=== PATIENT | male | born 1945 | race Hispanic/Latino ===

== ENCOUNTER → 2018-02-12 | Outpatient (CLI) | payer OTHER ==
[~2018-02-12] MED LIST: AEC81 PO; ATOR40TA69 PO; CITA40TA6 PO; ESOM40CA54 PO; HYDR12.530 PO; INSU100V12 SQ; IPRA4AER IH; LISI40TA4 PO; METF-446 PO; METO-391 PO; TAMS0.4C32 PO; TRAM50TA4 PO
== END | disposition home or self-care (01) ==
LOC: RAH 08:41
PROVIDERS: ATTEND Family Medicine
DX: N20.0 Calculus of kidney (principal); K76.89 Other specified diseases of liver
CPT/HCPCS: 76700

== ENCOUNTER → 2018-06-02 | Outpatient (CLI) | payer OTHER ==
[~2018-06-02] MED LIST changes: +REGADENOSON 0.4 MG/5 ML PF SYG IVP SCH
== END | disposition home or self-care (01) ==
LOC: SHCH 08:14
PROVIDERS: ATTEND Internal Medicine Cardiovascular Disease
DX: I20.9 Angina pectoris, unspecified (principal); R06.09 Other forms of dyspnea
CPT/HCPCS: 78452; 93017; 96374; A9500 ×2; J2785

== ENCOUNTER → 2018-07-01 | Outpatient (CLI) | payer OTHER ==
[~2018-07-01] MED LIST changes: -REGADENOSON 0.4 MG/5 ML PF SYG IVP SCH
== END | disposition home or self-care (01) ==
LOC: SHCH 12:52
PROVIDERS: ATTEND Internal Medicine Cardiovascular Disease
DX: I51.7 Cardiomegaly (principal); I35.1 Nonrheumatic aortic (valve) insufficiency
CPT/HCPCS: 93306

== ENCOUNTER → 2018-08-19 | Outpatient (CLI) | payer OTHER | END | disposition home or self-care (01) | LOC: SHCH 13:18 | PROVIDERS: ATTEND Internal Medicine Cardiovascular Disease | DX: I87.2 Venous insufficiency (chronic) (peripheral) (principal) | CPT/HCPCS: 93970 ==

== ENCOUNTER 2019-05-31 14:02 | Observation (INO) | payer OTHER ==
[~2019-05-31] VITALS: Ht 180.3 cm; Wt 99.6 kg
[2019-05-31] MEDS ORDERED: NITROGLYCERIN 1GM/1 INCH PACKET TD ONE ×2 (14:18→18:22)
[2019-05-31 14:24] LABS: BASOPHILS % (AUTO) 0.3 % (0.0-5.0); EOSINOPHILS % (AUTO) 1.5 % (0.0-8.0); HEMATOCRIT 42.3 % (42-54); LYMPHOCYTES % (AUTO) 6.5 % (21.0-51.0); MEAN CORPUSCULAR HGB CONC 33.8 g/dL (32.0-36.0); MEAN CORPUSCULAR VOLUME 85.8 fL (79-99); MONOCYTES % (AUTO) 8.7 % (3.0-13.0); NEUTROPHILS % (AUTO) 82.9 % (40.0-77.0); PLATELET COUNT (AUTO) 188 K/uL (130-400); RED BLOOD CELL COUNT(AUTO) 4.93 MIL/uL (4.50-6.20); RED CELL DISTRIBUTION WIDTH 13.4 % (11.0-15.5); WHITE BLOOD COUNT (AUTO) 7.5 K/uL (4.8-10.8)
[2019-05-31] MEDS ORDERED: IPRATROPIUM/ALBUTEROL SULFATE 3 ML SOLUTION IH ONE (14:39)
[2019-05-31 14:45] LABS: CREATININE 1.2 mg/dL (0.5-1.5); POTASSIUM 3.4 mmol/L (3.5-5.1)
[2019-05-31 14:47] LABS: B-TYPE NATRIURETIC PEPTIDE 86 pg/mL (0-100)
[2019-05-31 14:51] LABS: ALBUMIN 3.5 g/dL (3.5-5.0); BILIRUBIN,TOTAL 0.5 mg/dL (0.2-1.0); TOTAL PROTEIN, SERUM 7.4 g/dL (6.0-8.3)
[2019-05-31] MEDS ORDERED: CEFTRIAXONE SODIUM 1 GM ONE (15:24)
[2019-05-31] MEDS ORDERED: AZITHROMYCIN 500MG+NS 250ML 250 ML IV ONE (15:37)
[2019-05-31 15:56] LABS: APPEARANCE,URINE Clear (CLEAR); BILIRUBIN,URINE Negative (NEGATIVE); COLOR,URINE Yellow (YELLOW); GLUCOSE, URINE (UA) Negative (NEGATIVE); KETONES,URINE Negative (NEGATIVE); LEUKOCYTE ESTERASE ,URINE Negative (NEGATIVE); NITRATE,URINE Negative (NEGATIVE); OCCULT BLOOD,URINE Trace (NEGATIVE); PH,URINE 5.5 (5.0-8.0); PROTEIN,URINE POS 1+ mg/dL (NEGATIVE)
[2019-05-31 16:07] LABS: BACTERIA,URINE Rare /HPF (None Seen); RBC,URINE 0-1 /HPF (0-1); SQUAMOUS EPITHELIAL CELL,UR 0-2 /HPF (0-2); WBC,URINE 0-1 /HPF (0-1)
[2019-05-31] MEDS ORDERED: METHYLPREDNISOLONE SOD SUCC 125MG/2ML VIAL ONE (16:24)
[2019-05-31] MEDS ORDERED: METHYLPREDNISOLONE SOD SUCC 40MG/ML 1ML IVP SCH (16:30)
[2019-05-31] MEDS ORDERED: LIDOCAINE HCL-MPF 1% 2ML VIAL IV PRN (18:00)
[2019-05-31] MEDS ORDERED: DEXTROSE 50%-WATER 50 ML DISP.SYRIN IV PRN (18:00)
[2019-05-31] MEDS ORDERED: ACETAMINOPHEN 325 MG TAB PO PRN (18:00)
[2019-05-31] MEDS ORDERED: HYDRALAZINE HCL 20 MG/ML VIAL IV PRN (18:00)
[2019-05-31] MEDS ORDERED: POTASSIUM CHLORIDE 10% ELIXIR 20 MEQ/15 ML UDCUP PO PRN (18:00)
[2019-05-31] MEDS ORDERED: ONDANSETRON HCL 4 MG/2 ML VIAL IV PRN (18:00)
[2019-05-31] MEDS ORDERED: GLUCAGON 1MG KIT 1 MG ML IM PRN (18:00)
[2019-05-31] MEDS ORDERED: LACTULOSE 20 GM/30 ML UDCUP PO PRN (18:00)
[2019-05-31] MEDS ORDERED: NITROGLYCERIN 0.4 MG SL TAB SL PRN (18:00)
[2019-05-31] MEDS ORDERED: DiphenhydrAMINE HCL 50 MG/ML VIAL IV PRN (18:00)
[2019-05-31] MEDS ORDERED: ZOLPIDEM TARTRATE 5 MG TAB PO PRN (18:00)
[2019-05-31] MEDS ORDERED: POTASSIUM CHLORIDE 20MEQ/100ML 100 ML IV PRN (18:00)
[2019-05-31] MEDS: METHYLPREDNISOLONE SOD SUCC 40MG/ML 1ML IVP SCH ×2 (18:00→23:38)
[2019-05-31] MEDS ORDERED: MAG HYDROX/AL HYDROX/SIMETH ES 30 ML SUSP UDCUP PO PRN (18:00)
[2019-05-31] MEDS: NITROGLYCERIN 1GM/1 INCH PACKET TD SCH (18:00)
[2019-05-31] MEDS ORDERED: POTASSIUM CHLORIDE 10% ELIXIR 20 MEQ/15 ML UDCUP ONE (18:22)
[2019-05-31 18:39] LABS: TROPONIN I 0.09 ng/mL (0.00-0.06)
--- NOTE | 2019-05-31 19:34 | NUR ---
ADMISSION NOTE: Admitted to floor via stretcher. Awake and responsive. Placed in bed comfortably. Continously attached to O2 at 2lpm via NC with O2Sat at 100%. VS checked and recorded. Assessment done. (See CPOE flow chart for full assessment). Plan of care initiated. Has IV site to LFA #20 gauge with Azithromycin at 125 ml/hr - patent and intact. Telemetry not available at this time. Oriented to room and used of call light. Policies and procedures explained. Verbalized understanding. Home meds entered. Kept observed for any unusualities. Needs attended and cared for. Distress / discomfot not noted.
[2019-05-31 19:40] VITALS: BP 138/79
[2019-05-31] MEDS ORDERED: ENOXAPARIN SODIUM 100 MG/1 ML SQ SCH (20:00)
[2019-05-31] MEDS: IPRATROPIUM/ALBUTEROL SULFATE 3 ML SOLUTION IH SCH ×2 (20:01→21:54)
[2019-05-31] MEDS: BUDESONIDE 0.5 MG/2 ML INH IH SCH (20:06)
[2019-05-31] MEDS ORDERED: DULO30CA52 PO (20:06)
[2019-05-31] MEDS ORDERED: CLOP75TA32 PO (20:06)
[2019-05-31] MEDS ORDERED: INSU100I26 SQ (20:09)
[2019-05-31 20:42] LABS: ABG HCO3 25.8 mmol/L (21.0-28.0); ABG OXYGEN SATURATION 95.8 % (95.0-99.0); ABG PCO2 38 mmHg (35-48)
[2019-05-31] MEDS: INSULIN HUMULIN R 100 UNIT/ML 3ML SQ SCH (20:47)
[2019-05-31] MEDS: BENZONATATE 100 MG CAPSULE PO SCH (20:50)
[2019-05-31] MEDS: FAMOTIDINE 20MG TAB 20 MG TAB PO SCH (20:50)
[2019-05-31] MEDS: OSELTAMIVIR PHOSPHATE 75 MG CAP PO SCH (20:50)
[2019-05-31] MEDS: GUAIFENESIN-DM 200/20 MG 10 ML PO PRN (20:52)
[2019-05-31] MEDS ORDERED: IOHEXOL-350 75 ML VIAL IV ONE (21:19)
--- NOTE | 2019-05-31 22:51 | NUR ---
Tried to contact DR. Castillo for consult with this number ([phone]) but was told to call MD 8am.
[2019-05-31 23:46] VITALS: BP 121/62
[2019-06-01 00:29] LABS: TROPONIN I 0.08 ng/mL (0.00-0.06)
--- NOTE | 2019-06-01 00:55 | NUR ---
Telemetry now available was hooked to pt at bedside with ST result.
[2019-06-01] MEDS: IPRATROPIUM/ALBUTEROL SULFATE 3 ML SOLUTION IH SCH ×6 (01:50→22:37)
[2019-06-01] MEDS: NITROGLYCERIN 1GM/1 INCH PACKET TD SCH ×2 (02:19→10:12)
[2019-06-01 04:00] VITALS: BP 128/78
[2019-06-01] MEDS: GUAIFENESIN-DM 200/20 MG 10 ML PO PRN (04:15)
[2019-06-01] MEDS: BUDESONIDE 0.5 MG/2 ML INH IH SCH ×2 (05:15→19:00)
[2019-06-01] MEDS: METHYLPREDNISOLONE SOD SUCC 40MG/ML 1ML IVP SCH ×4 (05:19→23:25)
[2019-06-01] MEDS: INSULIN HUMULIN R 100 UNIT/ML 3ML SQ SCH ×4 (05:56→21:21)
[2019-06-01 06:15] LABS: BASOPHILS % (AUTO) 0.2 % (0.0-5.0); HEMATOCRIT 39.5 % (42-54); LYMPHOCYTES % (AUTO) 7.6 % (21.0-51.0); MEAN CORPUSCULAR HEMOGLOBIN 29.1 pg (27.0-33.0); MEAN CORPUSCULAR HGB CONC 34.2 g/dL (32.0-36.0); MEAN CORPUSCULAR VOLUME 85.1 fL (79-99); MONOCYTES % (AUTO) 1.2 % (3.0-13.0); NEUTROPHILS % (AUTO) 90.5 % (40.0-77.0); PLATELET COUNT (AUTO) 183 K/uL (130-400); RED BLOOD CELL COUNT(AUTO) 4.64 MIL/uL (4.50-6.20); RED CELL DISTRIBUTION WIDTH 13.5 % (11.0-15.5); WHITE BLOOD COUNT (AUTO) 5.7 K/uL (4.8-10.8)
[2019-06-01 06:35] LABS: INR 1.03 (0.85-1.15); PARTIAL THROMBOPLASTIN TIME 31.5 SEC (26.3-35.5); PROTHROMBIN TIME 10.8 SEC (9.6-11.6)
[2019-06-01 06:47] LABS: CARBON DIOXIDE 26 mmol/L (21-32); CHLORIDE 98 mmol/L (101-111); CREATINE KINASE, TOTAL 144 U/L (21-232); CREATININE 1.4 mg/dL (0.5-1.5); GLOMERULAR FILTR. RATE CALC 53 mL/min (>60); GLUCOSE,RANDOM 280 mg/dL (70-105); MYOGLOBIN 172 ng/mL (10-92); POTASSIUM 3.3 mmol/L (3.5-5.1); SODIUM SERUM 135 mmol/L (136-145); TROPONIN I < 0.04 ng/mL (0.00-0.06); UREA NITROGEN, BLOOD 19 mg/dL (7-18)
[2019-06-01 06:59] LABS: HEMOGLOBIN A1C 7.4 % (4.0-6.0)
[2019-06-01 07:30] VITALS: BP 129/67
[2019-06-01] MEDS ORDERED: ENOXAPARIN SODIUM 40 MG/0.4 ML SYRINGE SQ SCH (09:00)
[2019-06-01] MEDS: OSELTAMIVIR PHOSPHATE 75 MG CAP PO SCH ×2 (09:51→20:25)
[2019-06-01] MEDS: BENZONATATE 100 MG CAPSULE PO SCH ×3 (09:51→20:26)
[2019-06-01] MEDS: FAMOTIDINE 20MG TAB 20 MG TAB PO SCH ×2 (09:51→20:25)
[2019-06-01] MEDS: CLOPIDOGREL BISULFATE 75 MG TAB PO SCH (09:51)
[2019-06-01] MEDS: ASPIRIN 81 MG EC TAB PO SCH (09:51)
[2019-06-01] MEDS: LISINOPRIL 40 MG TABLET PO SCH (09:52)
[2019-06-01] MEDS: METOPROLOL SUCCINATE 50 MG TAB.SR.24H PO SCH (09:52)
[2019-06-01] MEDS: HYDROCHLOROTHIAZIDE 25 MG TABLET PO SCH (09:52)
[2019-06-01] MEDS: METFORMIN HCL 500 MG TABLET PO SCH ×2 (10:09→15:58)
[2019-06-01 11:00] VITALS: BP 145/68
[2019-06-01] MEDS ORDERED: LACTULOSE 20 GM/30 ML UDCUP PO SCH (12:40)
[2019-06-01] MEDS: CEFTRIAXONE SODIUM 500 MG VIAL IV SCH (15:00)
[2019-06-01] MEDS ORDERED: CEFTRIAXONE SODIUM 1 GM ONE (15:51)
[2019-06-01] MEDS: AZITHROMYCIN 500MG+NS 250ML 250 ML IV SCH (15:57)
[2019-06-01 16:00] VITALS: BP 132/74
[2019-06-01 20:00] VITALS: BP 140/77
[2019-06-01] MEDS: ENOXAPARIN SODIUM 40 MG/0.4 ML SYRINGE SQ SCH (20:27)
[2019-06-01] MEDS ORDERED: ATORVASTATIN CALCIUM 40 MG TABLET PO SCH (21:00)
[2019-06-01] MEDS ORDERED: DULOXETINE HCL 30 MG CAP PO SCH (21:00)
[2019-06-01] MEDS: POTASSIUM CHLORIDE 20 MEQ ERTAB PO PRN ×2 (21:50→23:26)
--- NOTE | 2019-06-01 22:34 | NUR ---
Patient on room air resting HR 92, RR 20, SATS 99% ,when I walked him for 6 minutes patients HR increased to 97, RR 24, SATS 97% maintained in the high 90's, based on results patient does not qualify for O2. Addendum: 06/01/19 at 2237 by PHUONG ISIDRO RT Amended: Links added.
[2019-06-01] MEDS: ACETAMINOPHEN 325 MG TAB PO PRN (23:35)
[2019-06-02] VITALS: BP 141/73
[2019-06-02] MEDS: IPRATROPIUM/ALBUTEROL SULFATE 3 ML SOLUTION IH SCH ×4 (02:00→13:35)
[2019-06-02 04:47] LABS: BASOPHILS % (AUTO) 0.1 % (0.0-5.0); HEMATOCRIT 36.6 % (42-54); LYMPHOCYTES % (AUTO) 4.5 % (21.0-51.0); MEAN CORPUSCULAR HEMOGLOBIN 29.1 pg (27.0-33.0); MEAN CORPUSCULAR HGB CONC 34.4 g/dL (32.0-36.0); MEAN CORPUSCULAR VOLUME 84.5 fL (79-99); NEUTROPHILS % (AUTO) 90.9 % (40.0-77.0); PLATELET COUNT (AUTO) 203 K/uL (130-400); RED BLOOD CELL COUNT(AUTO) 4.33 MIL/uL (4.50-6.20); RED CELL DISTRIBUTION WIDTH 13.5 % (11.0-15.5); WHITE BLOOD COUNT (AUTO) 16.6 K/uL (4.8-10.8)
[2019-06-02 04:56] LABS: ABG BASE EXCESS -0.7 mmol/L (-2.0-3.0); ABG HCO3 23.1 mmol/L (21.0-28.0); ABG OXYGEN SATURATION 91.2 % (95.0-99.0); ABG PCO2 36 mmHg (35-48)
[2019-06-02 05:02] LABS: CREATININE 1.5 mg/dL (0.5-1.5); POTASSIUM 3.9 mmol/L (3.5-5.1)
[2019-06-02] MEDS: BUDESONIDE 0.5 MG/2 ML INH IH SCH (05:03)
[2019-06-02 05:10] VITALS: BP 135/68
[2019-06-02] MEDS: METHYLPREDNISOLONE SOD SUCC 40MG/ML 1ML IVP SCH ×3 (05:14→16:34)
[2019-06-02] MEDS: INSULIN HUMULIN R 100 UNIT/ML 3ML SQ SCH ×3 (05:39→16:30)
[2019-06-02 08:18] VITALS: BP 144/87
[2019-06-02] MEDS: LISINOPRIL 40 MG TABLET PO SCH (08:26)
[2019-06-02] MEDS: METFORMIN HCL 500 MG TABLET PO SCH ×2 (08:26→15:02)
[2019-06-02] MEDS: FAMOTIDINE 20MG TAB 20 MG TAB PO SCH (08:26)
[2019-06-02] MEDS: HYDROCHLOROTHIAZIDE 25 MG TABLET PO SCH (08:27)
[2019-06-02] MEDS: CLOPIDOGREL BISULFATE 75 MG TAB PO SCH (08:27)
[2019-06-02] MEDS: BENZONATATE 100 MG CAPSULE PO SCH ×2 (08:29→12:05)
[2019-06-02] MEDS: OSELTAMIVIR PHOSPHATE 75 MG CAP PO SCH (08:29)
[2019-06-02] MEDS: METOPROLOL SUCCINATE 50 MG TAB.SR.24H PO SCH (08:29)
[2019-06-02] MEDS: ASPIRIN 81 MG EC TAB PO SCH (08:29)
[2019-06-02] MEDS: ENOXAPARIN SODIUM 40 MG/0.4 ML SYRINGE SQ SCH (08:31)
[2019-06-02] MEDS ORDERED: NICOTINE 14 MG/ 24 HR PATCH TD SCH (09:49)
[2019-06-02 10:54] VITALS: BP 115/50
[2019-06-02] MEDS: CEFTRIAXONE SODIUM 500 MG VIAL IV SCH (12:06)
[2019-06-02] MEDS: AZITHROMYCIN 500MG+NS 250ML 250 ML IV SCH (12:06)
[2019-06-02] MEDS ORDERED: NICO-704 TD (14:14)
[2019-06-02] MEDS ORDERED: OSEL75 PO (14:14)
[2019-06-02] MEDS ORDERED: AZIT250T9 PO (14:14)
[2019-06-02] MEDS: ACETAMINOPHEN 325 MG TAB PO PRN (15:01)
--- NOTE | 2019-06-02 16:00 | NUR ---
INITIAL MET W PATIENT AND SPOUSE- READY FOR DISCHARGE THIS AFTERNOON- DID NOT NEED OXYGEN- PT LIVE WITH [facility], WHO WILL PROVIDE TRANSPORT. PT IS ACTIVE AND AMBULATORY, USES A CANE AT TIME, DRIVES, HAS A NEBULIZER, CAME IN FOR COPD EXACERBATION BUT ENDED UP NOT NEEDIND OXYGEN. DCP IS HOME Addendum: 06/02/19 at 1940 by ELIUD WILLIAMSON RN CM Amended: Links added.
== END 2019-06-02 17:58 | disposition home or self-care (01) ==
LOC: EDH 14:02 → EDHIP 16:10 → 4DH 19:34
PROVIDERS: ADMIT Internal Medicine; ATTEND Internal Medicine
DX: J44.1 Chronic obstructive pulmonary disease with (acute) exacerbation (principal); N17.9 Acute kidney failure, unspecified; I25.82 Chronic total occlusion of coronary artery; I25.10 Atherosclerotic heart disease of native coronary artery without angina pectoris; I10 Essential (primary) hypertension; I25.2 Old myocardial infarction; I48.0 Paroxysmal atrial fibrillation; N40.0 Benign prostatic hyperplasia without lower urinary tract symptoms; E78.5 Hyperlipidemia, unspecified; E11.9 Type 2 diabetes mellitus without complications; Z95.5 Presence of coronary angioplasty implant and graft; Z87.442 Personal history of urinary calculi; Z72.0 Tobacco use
CPT/HCPCS: 36415 ×3; 36600 ×2; 71045; 71250; 71275; 80048 ×2; 80053; 81001; 82550 ×4; 82803 ×2; 82948 ×7; 83036; 83605 ×2; 83874 ×3; 83880; 84484 ×4; 85025 ×3; 85610; 85730; 87040 ×2; 87804 ×2; 93005; 94640 ×17; 94664; 94760 ×4; 96365; 96366; 96372 ×3; 96375 ×2; 96376 ×2; 99285; A4606; G0378 ×8; J0456 ×3; J0696 ×4; J1650 ×3; J1815 ×6; J2920 ×7; J2930; Q9967

== ENCOUNTER → 2020-06-09 | Outpatient (CLI) | payer OTHER ==
[~2020-06-09] MED LIST changes: +AZIT250T9 PO; -CITA40TA6 PO; +CLOP75TA32 PO; +DULO30CA52 PO; -ESOM40CA54 PO; +INSU100I26 SQ; -INSU100V12 SQ; -LISI40TA4 PO; +LISI40TA9 PO; +NICO-704 TD; +OSEL75 PO; -TAMS0.4C32 PO; -TRAM50TA4 PO
== END | disposition home or self-care (01) ==
LOC: SHCH 12:55
PROVIDERS: ATTEND Internal Medicine Cardiovascular Disease
DX: I70.202 Unspecified atherosclerosis of native arteries of extremities, left leg (principal); I87.2 Venous insufficiency (chronic) (peripheral)
CPT/HCPCS: 93925; 93970

== ENCOUNTER → 2021-08-09 | Outpatient (CLI) | payer OTHER | END | disposition home or self-care (01) | LOC: SHCH 12:11 | PROVIDERS: ATTEND Internal Medicine Cardiovascular Disease | DX: I35.1 Nonrheumatic aortic (valve) insufficiency (principal); I11.9 Hypertensive heart disease without heart failure; E78.5 Hyperlipidemia, unspecified; E11.51 Type 2 diabetes mellitus with diabetic peripheral angiopathy without gangrene; I73.9 Peripheral vascular disease, unspecified; R09.89 Other specified symptoms and signs involving the circulatory and respiratory systems | CPT/HCPCS: 93306; 93880; 93930 ==

== ENCOUNTER → 2021-10-24 | Outpatient (CLI) | payer OTHER | END | disposition home or self-care (01) | LOC: SHCH 09:18 | PROVIDERS: ATTEND Internal Medicine Cardiovascular Disease | DX: I70.293 Other atherosclerosis of native arteries of extremities, bilateral legs (principal); I87.2 Venous insufficiency (chronic) (peripheral) | CPT/HCPCS: 93925; 93970 ==

== ENCOUNTER → 2021-10-27 | Outpatient (CLI) | payer OTHER ==
[~2021-10-27] MED LIST changes: +REGADENOSON 0.4 MG/5 ML PF SYG IVP SCH
== END | disposition home or self-care (01) ==
LOC: SHCH 07:32
PROVIDERS: ATTEND Internal Medicine Cardiovascular Disease
DX: I11.9 Hypertensive heart disease without heart failure (principal); J44.1 Chronic obstructive pulmonary disease with (acute) exacerbation; R94.39 Abnormal result of other cardiovascular function study; I73.9 Peripheral vascular disease, unspecified; I87.2 Venous insufficiency (chronic) (peripheral); E78.5 Hyperlipidemia, unspecified; E11.59 Type 2 diabetes mellitus with other circulatory complications; E66.9 Obesity, unspecified; Z68.31 Body mass index [BMI] 31.0-31.9, adult
CPT/HCPCS: 78452; 96374; 93017; J2785; A9500 ×2

== ENCOUNTER → 2022-07-17 | Outpatient (CLI) | payer OTHER ==
[~2022-07-17] MED LIST changes: +AMLO-257 PO; -ATOR40TA69 PO; -AZIT250T9 PO; -CLOP75TA32 PO; -DULO30CA52 PO; -IPRA4AER IH; -NICO-704 TD; -OSEL75 PO; +PANT40TA54 PO; -REGADENOSON 0.4 MG/5 ML PF SYG IVP SCH; +RIVA2.5T PO
== END | disposition home or self-care (01) ==
LOC: SHCH 11:33
PROVIDERS: ATTEND Internal Medicine Cardiovascular Disease
DX: I87.2 Venous insufficiency (chronic) (peripheral) (principal)
CPT/HCPCS: 93970

== ENCOUNTER → 2022-09-07 | Outpatient (CLI) | payer OTHER ==
[2022-09-07 14:38] LABS: BASOPHILS % (AUTO) 0.3 % (0.0-5.0); EOSINOPHILS % (AUTO) 2.1 % (0.0-8.0); HEMATOCRIT 40.8 % (42-54); LYMPHOCYTES % (AUTO) 21.9 % (21.0-51.0); MEAN CORPUSCULAR HEMOGLOBIN 26.8 pg (27.0-33.0); MEAN CORPUSCULAR HGB CONC 32.6 g/dL (32.0-36.0); MEAN CORPUSCULAR VOLUME 82.1 fL (79-99); NEUTROPHILS % (AUTO) 68.4 % (40.0-77.0); PLATELET COUNT (AUTO) 232 K/uL (130-400); RED BLOOD CELL COUNT(AUTO) 4.97 MIL/uL (4.50-6.20); RED CELL DISTRIBUTION WIDTH 15.5 % (11.0-15.5); WHITE BLOOD COUNT (AUTO) 6.6 K/uL (4.8-10.8)
[2022-09-07 14:48] LABS: CREATININE 1.3 mg/dL (0.5-1.5)
[2022-09-07 14:49] LABS: PROTHROMBIN TIME 10.9 SEC (9.6-11.6)
[2022-09-07 14:50] LABS: PARTIAL THROMBOPLASTIN TIME 28.7 SEC (26.3-35.5)
== END | disposition home or self-care (01) ==
LOC: DAH 10:00 → EDSTATUS 13:00
PROVIDERS: ATTEND Internal Medicine Cardiovascular Disease
DX: Z01.810 Encounter for preprocedural cardiovascular examination (principal); I87.1 Compression of vein; I87.2 Venous insufficiency (chronic) (peripheral); Z79.01 Long term (current) use of anticoagulants
CPT/HCPCS: 36415; 80048; 85025; 85610; 85730

== ENCOUNTER → 2022-09-25 | Outpatient (CLI) | payer OTHER | END | disposition home or self-care (01) | LOC: SHCH 12:34 | PROVIDERS: ATTEND Internal Medicine Cardiovascular Disease | DX: I73.9 Peripheral vascular disease, unspecified (principal) | CPT/HCPCS: 93925 ==

== ENCOUNTER 2022-11-29 05:52 | Day surgery (SDC) | payer OTHER ==
[2022-11-27 10:15] LABS: BASOPHILS # (AUTO) 0.03 K/uL (0.00-0.20); BASOPHILS % (AUTO) 0.4 % (0.0-5.0); EOSINOPHILS # (AUTO) 0.21 K/uL (0.00-0.70); HEMATOCRIT 41.5 % (42-54); IMMATURE GRANULOCYTE ABSOLUTE 0.01 K/uL (0-1); LYMPHOCYTES # (AUTO) 1.3 K/uL (1.0-4.8); LYMPHOCYTES % (AUTO) 18.4 % (21.0-51.0); MEAN CORPUSCULAR HEMOGLOBIN 28.3 pg (27.0-33.0); MEAN CORPUSCULAR HGB CONC 33.3 g/dL (32.0-36.0); MEAN CORPUSCULAR VOLUME 85.2 fL (79-99); MONOCYTES # (AUTO) 0.5 K/uL (0.1-1.0); NEUTROPHILS # (AUTO) 5.1 K/uL (1.8-7.7); NEUTROPHILS % (AUTO) 71.1 % (40.0-77.0); PLATELET COUNT (AUTO) 206 K/uL (130-400); RED BLOOD CELL COUNT(AUTO) 4.87 MIL/uL (4.50-6.20); RED CELL DISTRIBUTION WIDTH 15.3 % (11.0-15.5); WHITE BLOOD COUNT (AUTO) 7.1 K/uL (4.8-10.8)
[2022-11-27 10:25] LABS: CREATININE 1.2 mg/dL (0.5-1.5); POTASSIUM 3.4 mmol/L (3.5-5.1)
[2022-11-27 10:28] LABS: INR 0.96 (0.85-1.15); PROTHROMBIN TIME 11.2 SEC (9.6-11.6)
[2022-11-27 10:29] LABS: PARTIAL THROMBOPLASTIN TIME 29.1 SEC (26.3-35.5)
[2022-11-27 10:53] VITALS: BP 179/82; PULSE 81; RESP 20
[2022-11-29] VITALS (9 sets, daily range): BP systolic 134–161; BP diastolic 66–84; PULSE 59–66; RESP 11–16
[~2022-11-29] VITALS: Ht 177.8 cm; Wt 97.6 kg
[~2022-11-29 05:52] MED LIST changes: +ALBU2.5V2 NEB; +ATOR40TA71 PO; +CLOP75TA32 PO; +DULO60CA64 PO; +HYDR12.54 PO; +IPRA4AER PO; -RIVA2.5T PO
[2022-11-29] MEDS ORDERED: ISOVUE-300 100 ML VIAL IV ONE (05:53)
[2022-11-29] MEDS ORDERED: 0.9%NACL 1000ML 1,000 ML IV ONE (07:18)
[2022-11-29] MEDS ORDERED: LINA145C PO (07:18)
[2022-11-29] MEDS ORDERED: MIDAZOLAM HCL 1 MG/ML 2ML VIAL ONE ×3 (07:21→09:00)
[2022-11-29] MEDS ORDERED: FENTANYL CITRATE PF 50 MCG/1 ML 2ML VIAL ONE ×2 (07:21→09:00)
[2022-11-29] MEDS ORDERED: HEPARIN 10,000 UNIT/10ML (1,000 UNIT/ML) VIAL ONE (07:21)
[2022-11-29] MEDS ORDERED: LIDOCAINE HCL 400MG/20ML VIAL ONE (07:21)
[2022-11-29] MEDS ORDERED: NITROGLYCERIN 50MG VIAL ONE (07:22)
[2022-11-29] MEDS ORDERED: NICARDIPINE 25MG INJ IV ONE (07:32)
[2022-11-29] MEDS ORDERED: CLOPIDOGREL 300MG TAB ONE (09:39)
[2022-11-29] MEDS ORDERED: HYDRALAZINE 20MG/ML VIAL ONE (09:53)
[2022-11-29] MEDS ORDERED: DEXTROSE 50%-WATER 50 ML DISP.SYRIN IV PRN (10:00)
[2022-11-29] MEDS ORDERED: HYDRALAZINE 20MG/ML VIAL IV PRN (10:00)
[2022-11-29] MEDS ORDERED: GLUCAGON 1MG KIT 1 MG ML IM PRN (10:00)
[2022-11-29] MEDS ORDERED: 0.9%NACL 1000ML 1,000 ML IV SCH (10:00)
[2022-11-29] MEDS ORDERED: INSULIN HUMULIN R 100 UNIT/ML 3ML SQ SCH (11:30)
== END 2022-11-29 14:35 | disposition home or self-care (01) ==
LOC: DAH 05:52
PROVIDERS: ATTEND Internal Medicine Cardiovascular Disease
DX: I70.212 Atherosclerosis of native arteries of extremities with intermittent claudication, left leg (principal); I71.40 Abdominal aortic aneurysm, without rupture, unspecified; I70.92 Chronic total occlusion of artery of the extremities; I87.1 Compression of vein; I87.2 Venous insufficiency (chronic) (peripheral); E11.51 Type 2 diabetes mellitus with diabetic peripheral angiopathy without gangrene; E11.42 Type 2 diabetes mellitus with diabetic polyneuropathy; I25.10 Atherosclerotic heart disease of native coronary artery without angina pectoris; I10 Essential (primary) hypertension; E78.5 Hyperlipidemia, unspecified; E66.9 Obesity, unspecified; F17.210 Nicotine dependence, cigarettes, uncomplicated; J44.1 Chronic obstructive pulmonary disease with (acute) exacerbation; Z79.899 Other long term (current) drug therapy; Z79.01 Long term (current) use of anticoagulants; Z98.890 Other specified postprocedural states; Z79.82 Long term (current) use of aspirin; Z79.84 Long term (current) use of oral hypoglycemic drugs; Z68.30 Body mass index [BMI] 30.0-30.9, adult; Z82.49 Family history of ischemic heart disease and other diseases of the circulatory system; Z83.3 Family history of diabetes mellitus; Z80.9 Family history of malignant neoplasm, unspecified
CPT/HCPCS: 80048; 85025; 85610; 85730; 36415; 37226; 75710; 75625; 82948 ×2; C1887 ×2; C1769 ×3; C1894 ×4; A4649; C1753; C1876 ×2; C1725 ×2; Q9967; J3010 ×2; J3490 ×3; J7030; J0360; J1644 ×3; J2250 ×3; A4215; A4222; A4221; A4663; A4216; A4606; A4223 ×3; 75774; 96360; 96361; 99156; 99157

== ENCOUNTER → 2023-02-21 | Outpatient (CLI) | payer OTHER ==
[~2023-02-21] MED LIST changes: +LINA145C PO
== END | disposition home or self-care (01) ==
LOC: SHCH 07:53
PROVIDERS: ATTEND Internal Medicine Cardiovascular Disease
DX: I87.2 Venous insufficiency (chronic) (peripheral) (principal); I87.1 Compression of vein; I70.203 Unspecified atherosclerosis of native arteries of extremities, bilateral legs; Z95.828 Presence of other vascular implants and grafts
CPT/HCPCS: 93925; 93970

== ENCOUNTER → 2023-09-26 | Outpatient (CLI) | payer OTHER | END | disposition home or self-care (01) | LOC: SHCH 13:26 | PROVIDERS: ATTEND Internal Medicine Cardiovascular Disease | DX: I70.203 Unspecified atherosclerosis of native arteries of extremities, bilateral legs (principal) | CPT/HCPCS: 93925 ==

== ENCOUNTER → 2024-02-07 | Outpatient (CLI) | payer OTHER | END | disposition home or self-care (01) | LOC: SHCH 14:48 | PROVIDERS: ATTEND Internal Medicine Cardiovascular Disease | DX: I73.9 Peripheral vascular disease, unspecified (principal) | CPT/HCPCS: 93925 ==

== ENCOUNTER → 2024-06-29 | Outpatient (CLI) | payer OTHER ==
[2024-06-29] MEDS: REGADENOSON 0.4 MG/5 ML PF SYG IVP ONE (12:30)
== END | disposition home or self-care (01) ==
LOC: SHCH 08:34
PROVIDERS: ATTEND Internal Medicine Cardiovascular Disease
DX: I25.10 Atherosclerotic heart disease of native coronary artery without angina pectoris (principal); R07.9 Chest pain, unspecified; R06.09 Other forms of dyspnea; R06.00 Dyspnea, unspecified
CPT/HCPCS: 78452; 93017; J2785; A9500 ×2